=== PATIENT | male | born 1985 | race Caucasian/White ===

== ENCOUNTER 2019-12-04 15:45 | Outpatient (CLI) | payer OTHER ==
[2019-12-04 16:29] VITALS: BP 112/78
--- NOTE | 2019-12-04 16:29 | SLEEP CARE CONSULTATION ---
Information from patient questionnaire entered by Megan Domingo. I have reviewed and concur with the information entered by Megan Domingo. This document represents the service I personally performed and the decisions made by me, Denisse Ramirez ARNP. History of Present Illness Service Date and Time: 12/04/2019 1545 Reason for Visit: New patient Chief Complaint: reports: Unrefreshed sleep, Snoring (heard in next room), Excessive daytime sleepiness, Observed pauses in breathing ( noticed), Fatigue, Frequent awakenings at night. denies: Insomnia Duration of Symptoms: 3 years Usual bedtime: 10:30 - 11 pm Time it takes to fall asleep: 1 hour Snores at night: Yes Observed to quit breathing while asleep: Yes Sleeps alone due to snoring: No Number of times waking at night: 3 Reasons for waking at night: reports: Snoring, Gasping for air. denies: [place], Pain Toss, Turn, or Twitch while sleeping: Yes Recalls having dreams: No (not lately) Usually gets out of bed at: 5 am Feels refreshed in the morning: No Morning headache: Yes (sometimes, thinks due to lack of sleep; last 3-4 hours, takes aleve prn) Sleepy or fatigued during the day: Yes (fatigued) Ever fallen asleep while driving: No Takes day naps: No (weekends maybe) Dreams during day naps: No Prior sleep studies: No Additional HPI information: Patient looking for answers due to loud snoring and fatigue. - Parasomnia Symptoms Ever been unable to move upon waking from sleep: Yes (two "out of body experiences", sees self/cannot move and then waking up) Walks in sleep: No Talks in sleep: No Ever acted out dreams in sleep: No Ever felt weak in the knees when startled or emotional: No Bothered by creepy, crawly, restless sensations in legs: Yes (occasionally felt numb legs or urge to move legs) Problems with memory or concentration: No Subjective Initial Tyler Sleepiness Scale score: 14 (in 2019) Past Medical History Past Medical History: denies: Hypertension, Congestive Heart Failure, Diabetes, Stroke, Insulin resistance, Arrythmia, Hypothyroidism, Anemia, Anxiety, Impotence, Asthma, Depression, Mood disorder, GERD, Attention deficit Social History 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 Patient is and lives in [place]. Have you smoked in the past 12 months: No Alcohol use: No Caffeine use: Yes Caffeine amount and frequency: maybe 1 a day Family History Family history of sleep disordered breathing: No Family Hx Sleep Apnea: Father: Snoring Allergies and Home Medications Drug allergies reviewed: Yes (NKDA) Home medication list reviewed: Yes (no medications) Review of Systems Cardiovascular: denies: high blood pressure, palpitations, chest pain, irregular heart rate or pulse, leg or foot swelling Respiratory: denies: shortness of breath, wheeze, chronic cough Gastrointestinal: reports: heartburn. denies: difficulty swallowing, abdominal pain Neurological: denies: headaches, seizure, head trauma, disorientation, speech dy sfunction, gait or balance problems, fainting or unconsciousness Psychiatric: denies: Attention Deficit Hyperactivity, anxiety, depression, mood disorder Ear/Nose/Throat: reports: nose bleeds (got when younger due to thin nasal mucosa/blood vessels), dry mouth/throat (occasional in mornings), wisdom teeth removed. denies: nasal congestion, sinus problems, hoarseness, injury to nose, tonsillectomy Endocrine: denies: thyroid disease, sluggishness, too hot or cold, excessive thirst, increased appetite Musculoskeletal: reports: back pain, muscle pain or cramping Immunologic: reports: sneezing, allergies to food or environment (seasonal allergies) Physical Exam Blood Pressure: 112/78 Cuff size: long Heart Rate: 86 O2 Saturation: 96 Height: 6 ft Weight: 182 lb Body Mass Index: 24.7 BMI Classification: Healthy weight Neck circumference: 14.25 Nasal exam: negative: erythema, blood tinged nasal secretions HEENT: No craniofacial malformation Nostrils: patent to airflow Turbinates: boggy Septum: midline Mouth and throat: normal Soft palate: normal Hard palate: normal Uvula: normal Uvula visualization: 50% Mallampati Class II Tongue: normal in size Tonsils: 1+ Chin and jaw: normal size and position Neck: normal w/o lymphadenopathy or thyromegaly Heart: regular rate and rhythm Lungs: clear bilaterally Impression and Plan 1. Suspected Obstructive Sleep Apnea-Hypopnea Syndrome, as suggested by a hi story of loud and irregular snoring, observed cessation of breath while asleep, gasping or choking in sleep, morning headache, and excessive daytime sleepiness. His Tyler evaluation was 14 today. I recommend proceeding to polysomnography to confirm the diagnosis and to assess severity. I informed the patient of what the sleep studies involve and after some discussion, obtained agreement to proce ed. The pathophysiology of obstructive sleep apnea-hypopnea syndrome was discussed with the patient and health risks of cardiovascular and cerebrovascular disease if not treated. [facility] brochure for obstructive sleep apnea-hypopnea syndrome given and reviewed. Risks of drowsy driving discussed in detail and patient advised to avoid long distance driving and to wool puller at the first sign of drowsiness. Patient agreed to plan. * Schedule polysomnography and return in 1-2 weeks after the study to discuss result and initiate therapy. * Avoid long distance driving or driving when feeling sleepy. * Avoid alcohol, sedative and muscle relaxant around bedtime. * Review instructions provided by trained office staff on how to prepare for the sleep study. * Return for follow-up after sleep study completed. Visit Type: In Office Time Spent with Patient (minutes): 28 Provider Statement: I spent 100% of the Face to Face Visit with the patient with greater than 50% spent counseling the patient and coordination of care.
== END 2019-12-04 15:46 | disposition home or self-care (01) ==
LOC: SC 15:45
PROVIDERS: ATTEND Nurse Practitioner Family
DX: R06.83 Snoring (principal); R06.81 Apnea, not elsewhere classified; R51 Headache; G47.10 Hypersomnia, unspecified
CPT/HCPCS: 99204; 99212

== ENCOUNTER 2020-02-23 15:05 | Outpatient (CLI) | payer OTHER ==
--- NOTE | 2020-02-23 15:50 | SLEEP CARE CONSULTATION ---
Information from patient questionnaire entered by Kassandra Gruber. I have reviewed and concur with the information entered by Kassandra Gruber. This document represents the service I personally performed and the decisions made by me, Denisse Ramirez ARNP. History of Present Illness Service Date and Time: 02/23/2020 1505 Previous diagnosis: Mild, Other (Upper airway resistance syndrome) AHI: 2.3 (RDI of 5.6) Reason for follow up: first compliance (01/16) Equipment type: CPAP Equipment obtained from: [employer] (getting supplies as needed) Mask style: Full face (AirMed) Mask brand: Resmed Backup mask available: Yes (other mask/full face) Last cushion change: 6 weeks Prior sleep studies: No Year and Where: 2019 [facility] Type of Sleep Study: Polysomnography HPI additional information: DIEUDONNE MARIE was diagnosed to have mild, AHI 2.3 with RDI 5.6, upper airway resistance syndrome and returned today for CPAP therapy first compliance follow- up. Sleep Study - Results Prior sleep studies: No CPAP Compliance Data - Data Reviewed with Patient Average duration of nightly device use: 3 hours 54 minutes Compliance rate %: 73 Current pressure setting (cmH2O): 4-15 Average residual AHI: 2.6 Central apnea: 1.8 Obstructive apnea: 0.3 Hypopnea: 0.5 Average large leak: 1.2 L/min Subjective Patient concerns: reports: condensation in mask/hose (hose), nasal congestion (sometimes when allergies), dry mouth, nose, throat (sometimes, adjusting humidity up). denies: aerophagia, mask discomfort, air blowing in eyes, mask leak noise, epistaxis, other Observed to snore while using device: No Current pressure setting perceived as: comfortable (starts out good but then it feels like not enough) On therapy, patient: reports: sleeping better, awakening more refreshed, being more awake and alert during the day, more rested overall. denies: drowsiness while driving Initial Durham Sleepiness Scale score: 14 (in 2019) Current Durham Sleepiness Scale score: 8 Allergies and Home Medications Drug allergies reviewed: Yes (NKDA) Home medication list reviewed: Yes (no changes) Review of Systems Review of systems same as previous: Yes (no changes) Physical Exam Heart Rate: 77 O2 Saturation: 98 Height: 6 ft Weight: 183 lb Body Mass Index: 24.8 BMI Classification: Healthy weight Impression and Plan 1. Upper airway resistance syndrome, mild, with fair treatment compliance and good apnea control. On CPAP therapy, the patient has better sleep quality and is more rested overall. He has been experiencing some air hunger, like the pressure is not enough. I will increase the starting pressure to 7-11 cm H2O to see if this will resolve this issue. He is to follow up again in about 1-2 months. He has had some issue with dry mouth and states he has been seen sleeping with mouth open. He may use a chin strap. He was also advised to adjust his humidity/heated hose setting. He has placed his machine lower than his head to keep condensation out of mask. It is still in hose. Oral dryness can be reduced by adjusting humidity setting higher or heated hose lower or by adjusting both settings. Patient's apnea severity and rationale for treatment to reduce apnea, improve sleep quality and reduce cardiovascular and cerebrovascular events was reviewed. * Change auto CPAP pressure to 7-11 cmH2O * Notify me if snoring with mask or feeling that the pressure is too much or too little * Attempt to lose weight * Call this office if any problems using CPAP * Return for follow up in 1-2 months, or sooner if concerns arise Counseling Topics: Weight loss health impact Visit Type: In Office Time Spent with Patient (minutes): 23 Provider Statement: I spent 100% of the Face to Face Visit with the patient with greater than 50% spent counseling the patient and coordination of care.
== END 2020-02-23 15:06 | disposition home or self-care (01) ==
LOC: SC 15:05
PROVIDERS: ATTEND Nurse Practitioner Family
DX: G47.8 Other sleep disorders (principal)
CPT/HCPCS: 99212

== ENCOUNTER 2020-03-30 14:39 | Outpatient (CLI) | payer OTHER ==
--- NOTE | 2020-03-30 15:22 | SLEEP CARE CONSULTATION ---
Information from patient questionnaire entered by Kassandra Gruber. I have reviewed and concur with the information entered by Kassandra Gruber. This document represents the service I personally performed and the decisions made by me, Denisse Ramirez ARNP. History of Present Illness Service Date and Time: 03/30/2020 1439 Previous diagnosis: Mild, Other (Upper airway resistance syndrome) AHI: 2.3 ((RDI 5.6)) Reason for follow up: one month (followup - pressure change) Equipment type: CPAP Equipment obtained from: [employer] (has not received any supplies yet, needs to order) Mask style: Full face Backup mask available: Yes (other mask) Last cushion change: 2 months Prior sleep studies: No Year and Where: 2019 [facility] Type of Sleep Study: Polysomnography HPI additional information: DIEUDONNE MARIE was diagnosed to have mild, AHI 2.3 (RDI 5.6), upper airway resistance syndrome and returned today for CPAP therapy one month pressure change follow-up. Sleep Study - Results Type of Sleep Study: Polysomnography Prior sleep studies: No Year and Where: 2019 [facility] CPAP Compliance Data - Data Reviewed with Patient Average duration of nightly device use: 4 h 32 min Compliance rate %: 80 Current pressure setting (cmH2O): 7-11 Average residual AHI: 2.2 (RERA 0.4) Central apnea: 1.5 Obstructive apnea: 0.2 Average large leak: 0.5 L/min Subjective Missed days of use due to: reports: other (work) Patient concerns: reports: dry mouth, nose, throat (dry mouth). denies: aerophagia, mask discomfort, air blowing in eyes, mask leak noise, condensation in mask/hose, nasal congestion, epistaxis, other Observed to snore while using device: Yes (once or twice) Current pressure setting perceived as: comfortable On therapy, patient: reports: sleeping better, being more awake and alert during the day. denies: awakening more refreshed, more rested overall, drowsiness while driving Initial Ary Sleepiness Scale score: 14 (in 2019) Current Ary Sleepiness Scale score: 12 Allergies and Home Medications Drug allergies reviewed: Yes (NKDA) Home medication list reviewed: Yes (no changes) Review of Systems Review of systems same as previous: Yes (no changes) Physical Exam Heart Rate: 62 O2 Saturation: 98 Height: 6 ft Weight: 183 lb Body Mass Index: 24.8 BMI Classification: Healthy weight Impression and Plan 1. Upper Airway Resistance Syndrome, mild, with good treatment compliance and good control of upper airway resistance with RERAs at 0.4. He will continue at present pressure range. On CPAP therapy, the patient has better sleep quality but is not sure he is feeling more rested overall. His Ary has improved to 12 from 14 initially. He is averaging 4.5 hours nightly of sleep on his CPAP machine due to his work schedule. I advised him that we need on average 7-9 hours of sleep to get the best benefit from sleeping and CPAP therapy. He was encouraged to try to increase his time in bed sleeping to at least 6.5-7 hours to received the most benefit and reduce his sleepiness. He has been having mouth dryness in the mornings and has tried to adjust the humidity setting. Oral dryness can be reduced by adjusting humidity setting higher or heated hose lower or by adjusting both settings. Oral instructions given on how to change humidity and heated hose settings with rationale explaining why to change. Patient advised that chronic oral dryness can affect dental health and advised to follow up with dentist. In addition, there are oral dryness products that can be used to reduce dryness such as Biotene products, Dry mouth rinse and Xylomelts. P atient to discuss best option with dentist. Patient's apnea severity and rationale for treatment to reduce apnea, improve sleep quality and reduce cardiovascular and cerebrovascular events was reviewed. * Continue auto CPAP pressure at 7-11 cmH2O * Notify me if snoring with mask or feeling that the pressure is too much or too little * Call this office if any problems using CPAP * Return for follow up in 3 months, or sooner if concerns arise Counseling Topics: Spare mask Visit Type: In Office Time Spent with Patient (minutes): 18 Provider Statement: I spent 100% of the Face to Face Visit with the patient with greater than 50% spent counseling the patient and coordination of care.
== END 2020-03-30 14:40 | disposition home or self-care (01) ==
LOC: SC 14:39
PROVIDERS: ATTEND Nurse Practitioner Family
DX: G47.8 Other sleep disorders (principal)
CPT/HCPCS: 99212; 99213

== ENCOUNTER 2020-07-05 13:47 | Outpatient (CLI) | payer OTHER ==
--- NOTE | 2020-07-05 14:21 | SLEEP CARE CONSULTATION ---
Information from patient questionnaire entered by Kassandra Gruber. I have reviewed and concur with the information entered by Kassandra Gruber. This document represents the service I personally performed and the decisions made by me, Denisse Ramirez ARNP. History of Present Illness Service Date and Time: 07/05/2020 1347 Previous diagnosis: Mild, Other AHI: 2.3 Reason for follow up: three month (followup) Equipment type: CPAP Equipment obtained from: [employer] (getting supplies, got wrong size) Mask style: Full face Backup mask available: Yes (other mask) Prior sleep studies: No Year and Where: 2019 [facility] Type of Sleep Study: Polysomnography HPI additional information: DIEUDONNE MARIE was diagnosed to have mild Upper Airway Resistance Syndrome with an AHI 2.3 (RDI of 5.6), and returned today for CPAP therapy three month follow- up. Sleep Study - Results Type of Sleep Study: Polysomnography Prior sleep studies: No Year and Where: 2019 [facility] CPAP Compliance Data - Data Reviewed with Patient Average duration of nightly device use: 5 h 15 min Compliance rate %: 78 Current pressure setting (cmH2O): 7-11 Average residual AHI: 2.2 (RERA index 0.2) Subjective Missed days of use due to: reports: other (power outage, work) Patient concerns: reports: condensation in mask/hose, dry mouth, nose, throat (dry mouth). denies: aerophagia, mask discomfort, air blowing in eyes, mask leak noise, nasal congestion, epistaxis, other Observed to snore while using device: No Current pressure setting perceived as: comfortable On therapy, patient: reports: sleeping better, awakening more refreshed, being more awake and alert during the day, more rested overall. denies: drowsiness while driving Initial Livingston Sleepiness Scale score: 14 (in 2020) Current [place]ston Sleepiness Scale score: 11 Allergies and Home Medications Home medication list reviewed: Yes (no changes) Review of Systems Review of systems same as previous: Yes (no changes) Physical Exam Heart Rate: 66 O2 Saturation: 98 Height: 6 ft Weight: 184 lb Body Mass Index: 24.9 BMI Classification: Healthy weight Impression and Plan 1. Upper Airway Resistance Syndrome, mild, with fair treatment compliance and good RERA control. On CPAP therapy, the patient has better sleep quality and is more rested overall. He has been having issues with dry mouth, tries to increase the humidity but then gets condensation in the hose so he turns it back down. I advised that he increase the humidity and also the heated hose setting to reduce oral dryness and condensation in the hose. He is also requesting his records because he will be moving in the summer and will not be here for a 6 month follow up. I advised him to establish with another sleep care center once he has moved to continue his follow ups. Patient's apnea severity and rationale for treatment to reduce apnea, improve sleep quality and reduce cardiovascular and cerebrovascular events was reviewed. * Continue auto CPAP pressure at 7-11 cmH2O * Notify me if snoring with mask or feeling that the pressure is too much or too little * Attempt to lose weight * Call this office if any problems using CPAP * Return for follow up in 6 months, or sooner if concerns arise Counseling Topics: Spare mask Visit Type: In Office Time Spent with Patient (minutes): 17 Provider Statement: I spent 100% of the Face to Face Visit with the patient with greater than 50% spent counseling the patient and coordination of care.
== END 2020-07-05 13:48 | disposition home or self-care (01) ==
LOC: SC 13:47
PROVIDERS: ATTEND Nurse Practitioner Family
DX: G47.8 Other sleep disorders (principal)
CPT/HCPCS: 99212